=== PATIENT | female | born 1985 | race Caucasian/White ===

== ENCOUNTER 2017-06-26 11:21 | Emergency (ER) | payer MEDICAID ==
[2017-06-26] MEDS ORDERED: Albuterol-Ipratrop 3 mg / 0.5 (3 ml) UD IH STA (11:55)
[2017-06-26] MEDS ORDERED: Albuterol-Ipratrop 3 mg / 0.5 (3 ml) UD ONE (12:08)
--- NOTE | 2017-06-26 12:14 | RAD ---
HISTORY: Cough COMPARISON: Chest x-ray performed 07/12/14 TECHNIQUE: Chest PA and lateral FINDINGS: LUNGS: No focal consolidation. Please note that chest x-ray has limited sensitivity for the detection of pulmonary masses. PLEURA: No significant pleural effusion identified. No definite pneumothorax . CARDIOVASCULAR: The cardiomediastinal silhouette appears within normal limits of size. OSSEOUS STRUCTURES: No acute osseous abnormality identified. VISUALIZED UPPER ABDOMEN: Unremarkable. OTHER FINDINGS: None. IMPRESSION: No focal consolidation, significant pleural effusion, or definite pneumothorax identified.
--- NOTE | 2017-06-26 12:18 | C.PDOC ---
History Of Present Illness 31 year old female, with PMHx of Asthma, presents to the ED for evaluation of cough and cold symptoms which began around 2 days ago. Patient notes she has been producing a lot of phlegm. She denies fever, chills, chest pain, shortness of breath. Time Seen by Provider: 06/26/17 11:31 Chief Complaint (Nursing): Shortness Of Breath History Per: Patient History/Exam Limitations: no limitations Onset/Duration Of Symptoms: Days (2) Current Symptoms Are (Timing): Still Present Initiating Event: Upper Respiratory Illness Quality: denies: "Pain" Exacerbating Factor(s): Coughing Current Respiratory Medications: See Home Med List Associated Symptoms: Productive Cough. denies: Fever, Chills, Chest Pain Additional History Per: Patient Past Medical History Reviewed: Historical Data, Nursing Documentation, Vital Signs Vital Signs: Last Vital Signs Temp 98.2 F 06/26/17 12:58 Pulse 83 06/26/17 12:58 Resp 20 06/26/17 12:58 BP 124/70 06/26/17 12:58 Pulse Ox 100 06/26/17 12:58 - Medical History PMH: Asthma, Bronchitis Surgical History: No Surg Hx - [facility] Procedures CLOSURE SKIN & SUBCUTANEOUS NEC (08/06/14) TETANUS TOXOID ADMINIST (08/06/14) Family History: States: Unknown Family Hx - Social History Hx Tobacco Use: Yes Hx Alcohol Use: Yes Hx Substance Use: No - Immunization History Hx Tetanus Toxoid Vaccination: No Hx Influenza Vaccination: No Hx Pneumococcal Vaccination: No Review Of Systems Constitutional: Negative for: Fever, Chills Cardiovascular: Negative for: Chest Pain Respiratory: Positive for: Cough, Sputum. Negative for: Shortness of Breath Physical Exam - Physical Exam Appears: Non-toxic, No Acute Distress Skin: Normal Color, Warm, Dry Head: Atraumatic, Normacephalic Eye(s): bilateral: Normal Inspection Ear(s): Bilateral: Normal Nose: Normal, No Discharge Oral Mucosa: Moist Throat: Normal, No Erythema, No Exudate Neck: Supple Chest: Symmetrical, No Deformity, No Tenderness Cardiovascular: Rhythm Regular, No Murmur Respiratory: Normal Breath Sounds, No Rales, No Rhonchi, No Wheezing Extremity: Normal ROM, Capillary Refill (less than 2 seconds ) Neurological/Psych: Oriented x3, Normal Speech, Normal Cognition Gait: Steady ED Course And Treatment ECG: Interpreted By Me ECG Rhythm: Sinus Rhythm ECG Interpretation: Normal Rate From EC O2 Sat by Pulse Oximetry: 100 (on RA) Pulse Ox Interpretation: Normal - Radiology CXR: Interpreted by Me CXR Interpretation: Yes: No Acute Disease - Other Rad No standard instances X-Ray: Viewed By Me, Read By Radiologist Interpretation: FINDINGS: LUNGS: No focal consolidation. Please note that chest x-ray has limited sensitivity for the detection of pulmonary masses. PLEURA: No significant pleural effusion identified. No definite pneumothorax . CARDIOVASCULAR: The cardiomediastinal silhouette appears within normal limits of size. OSSEOUS STRUCTURES: No acute osseous abnormality identified. VISUALIZED UPPER ABDOMEN: Unremarkable. OTHER FINDINGS: None. IMPRESSION: No focal consolidation, significant pleural effusion, or definite pneumothorax identified. Progress Note: CXR ordered and reviewed. Patient was treated with Abluterol INH. On re-evaluation lungs clear Reassessment Condition: Improved Disposition Counseled Patient/Family Regarding: Studies Performed, Diagnosis, Need For Followup, Rx Given - Disposition Referrals: [facility] [Outside] [facility] [Outside] Disposition: HOME/ ROUTINE Disposition Time: 12:45 Condition: STABLE Additional Instructions: Follow up at clinic or PMD for further evaluation Prescriptions: Albuterol HFA [Ventolin HFA 90 mcg/actuation (8 g)] 2 puff IH [id number] PRN #1 appful PRN Reason: Cough Instructions: Upper Respiratory Infection in Children (ED) Forms: [facility] (Yi) - POA Present On Arrival: None - Clinical Impression Clinical Impression: Asthma, Upper respiratory infection - 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 - Scribe Statement The provider has reviewed the documentation as recorded by the Scribe (Charmaine Marshall) All medical record entries made by the Scribe were at my direction and personally dictated by me. I have reviewed the chart and agree that the record accurately reflects my personal performance of the history, physical exam, medical decision making, and the department course for this patient. I have also personally directed, reviewed, and agree with the discharge instructions and disposition.
[2017-06-26 12:58] VITALS: BP 124/70; PULSE 83; RESP 20; TEMP 98.2; O2SAT 100
--- NOTE | 2017-06-27 15:37 | CARD ---
APPROVED REPORT EKG Measurement Heart [id number] <Conclusion> Normal sinus rhythm Normal ECG
== END 2017-06-26 12:58 | disposition home or self-care (01) ==
LOC: C.ER 11:21
DX: J45.909 Unspecified asthma, uncomplicated (principal); J06.9 Acute upper respiratory infection, unspecified; F17.210 Nicotine dependence, cigarettes, uncomplicated

== ENCOUNTER 2018-10-02 23:35 | Emergency (ER) | payer SELFPAY ==
[2018-10-02 23:53] VITALS: RESP 20
[2018-10-03 01:42] VITALS: BP 101/61; PULSE 57; TEMP 98.3; O2SAT 99
--- NOTE | 2018-10-03 01:45 | C.PDOC ---
History Of Present Illness 33 year old female presents to the ER with a complaint of intermittent cold for the past 5 weeks. She has been taking mucinex, tessalon, alkaseltzer, and advil with no relief. Patient states she continues to have fever, nasal conegstion, and persistent cough. Denies SOB or wheezing. Patient reports now having pain in her back and feels like she has been losing weight since the symptoms started. Chief Complaint (Nursing): Cough, Cold, Congestion History Per: Patient History/Exam Limitations: no limitations Onset/Duration Of Symptoms: Days, Intermittent Episodes Current Symptoms Are (Timing): Still Present Location Of Pain: Other (Back) Sick Contacts (Context): None Associated Symptoms: Fever, Cough, Nasal Congestion Recent travel outside of the [place]: No Past Medical History Reviewed: Historical Data, Nursing Documentation, Vital Signs Vital Signs: Last Vital Signs Temp 98.3 F 10/03/18 01:41 Pulse 57 L 10/03/18 01:41 Resp 20 10/03/18 01:41 BP 101/61 10/03/18 01:41 Pulse Ox 99 10/03/18 01:41 - Medical History PMH: Asthma, Bronchitis - [facility] Procedures CLOSURE SKIN & SUBCUTANEOUS NEC (08/06/14) TETANUS TOXOID ADMINIST (08/06/14) Family History: States: Unknown Family Hx - Social History Hx Tobacco Use: Yes Hx Alcohol Use: Yes Hx Substance Use: No - Immunization History Hx Tetanus Toxoid Vaccination: No Hx Influenza Vaccination: No Hx Pneumococcal Vaccination: No Review Of Systems Constitutional: Positive for: Fever. Negative for: Chills Eyes: Negative for: Pain, Redness ENT: Positive for: Nose Congestion. Negative for: Mouth Swelling Cardiovascular: Negative for: Chest Pain Respiratory: Positive for: Cough. Negative for: Shortness of Breath Gastrointestinal: Negative for: Nausea, Vomiting, Diarrhea Genitourinary: Negative for: Dysuria, Hematuria Musculoskeletal: Negative for: Back Pain Skin: Negative for: Rash Neurological: Negative for: Weakness, Numbness, Dizziness Physical Exam - Physical Exam Appears: Well, Non-toxic, No Acute Distress Skin: Normal Color, Warm, No Rash Head: Atraumatic, Normacephalic Eye(s): bilateral: Normal Inspection, PERRL, EOMI Ear(s): Bilateral: Normal Nose: Discharge (Clear), Other (Nasal congestion) Oral Mucosa: Moist Throat: Normal (No swelling or injection), No Exudate Neck: Normal ROM, Supple Chest: Symmetrical Cardiovascular: Rhythm Regular Respiratory: No Accessory Muscle Use, Other (Normal inspiratory effort) Gastrointestinal/Abdominal: Soft, No Distention Back: No CVA Tenderness Neurological/Psych: Oriented x3, Normal Speech, Normal Cranial Nerves (Grossly intact) Gait: Steady ED Course And Treatment O2 Sat by Pulse Oximetry: 99 (Room air) Pulse Ox Interpretation: Normal - Radiology CXR: Interpreted by Me, Viewed By Me CXR Interpretation: Yes: No Acute Disease. No: Infiltrates Medical Decision Making Medical Decision Making: CXR and flu swab ordered, results were negative. Patient advise symptoms are likely due to viral syndrome, will discharge home with instructions to follow up with PMD. 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 - Scribe Statement The provider has reviewed the documentation as recorded by the Scribruslan Garcia All medical record entries made by the Chemoibe were at my direction and personally dictated by me. I have reviewed the chart and agree that the record accurately reflects my personal performance of the history, physical exam, medical decision making, and the department course for this patient. I have also personally directed, reviewed, and agree with the discharge instructions and disposition.
--- NOTE | 2018-10-03 09:54 | RAD ---
Date of service: 10/03/2018 HISTORY: Evaluate for pneumonia COMPARISON: 06/26/2017. TECHNIQUE: Chest PA and lateral FINDINGS: LINES AND TUBES: None. LUNG AND PLEURA: The lungs are well inflated and clear. No pleural effusion or pneumothorax. HEART AND MEDIASTINUM: The heart is not enlarged. No aortic atherosclerotic calcifications present. The hilar and mediastinal contours are within normal limits. SKELETAL STRUCTURES: The bony structures are within normal limits for the patient's age. VISUALIZED UPPER ABDOMEN: Normal. OTHER FINDINGS: None. IMPRESSION: No active pulmonary disease.
== END 2018-10-03 01:51 | disposition home or self-care (01) ==
LOC: C.ER 23:35
DX: J06.9 Acute upper respiratory infection, unspecified (principal)

== ENCOUNTER 2018-11-21 18:32 | Emergency (ER) | payer MEDICAID, OTHER ==
[2018-11-21 18:43] VITALS: O2SAT 100
[2018-11-21 19:12] VITALS: RESP 18
--- NOTE | 2018-11-21 20:46 | C.PDOC ---
History Of Present Illness 33 year old female presents to ED with complaint of mass to the left breast for the past 5-6 weeks. Patient states that it has gotten larger in the past few days. Patient's mother had cervical cancer and her grandmother had breast cancer. Patient denies fever, denies drainage coming from the mass. Time Seen by Provider: 11/21/18 19:11 Chief Complaint (Nursing): Abnormal Skin Integrity History Per: Patient History/Exam Limitations: no limitations Onset/Duration Of Symptoms: Other (5-6 weeks) Current Symptoms Are (Timing): Still Present Location Of Injury: Left: Chest (left breast) Quality Of Symptoms: Swollen. denies: Draining Severity: Moderate Past Medical History Reviewed: Historical Data, Nursing Documentation, Vital Signs Vital Signs: Last Vital Signs Temp 97.9 F 11/21/18 19:05 Pulse 64 11/21/18 19:05 Resp 18 11/21/18 19:05 BP 115/70 11/21/18 19:05 Pulse Ox 100 11/21/18 19:05 - Medical History PMH: Asthma, Bronchitis Surgical History: No Surg Hx - [facility] Procedures CLOSURE SKIN & SUBCUTANEOUS NEC (08/06/14) TETANUS TOXOID ADMINIST (08/06/14) Family History: States: Other Other Family History: Cervical cancer and breast cancer - Social History Hx Tobacco Use: Yes Hx Alcohol Use: Yes Hx Substance Use: No - Immunization History Hx Tetanus Toxoid Vaccination: No Hx Influenza Vaccination: No Hx Pneumococcal Vaccination: No Review Of Systems Constitutional: Negative for: Fever, Chills, Weakness Cardiovascular: Negative for: Chest Pain Respiratory: Negative for: Cough Skin: Positive for: Other (mass on the left breast, no drainage) Neurological: Negative for: Weakness, Numbness, Dizziness Physical Exam - Physical Exam Appears: Non-toxic, No Acute Distress Skin: Warm, Dry Head: Atraumatic, Normacephalic Neck: Normal ROM, Supple Lymphatic: No Other (axillary adenopathy) Chest: Other (small breasts, bilateral inverted nipples; firm, raised 1 cm roundish mass on areola medial to the nipple on the areola, no fluctuance, no warmth, no drainage. no other breast masses palpated) Cardiovascular: Rhythm Regular Respiratory: No Decreased Breath Sounds Extremity: Bilateral: Atraumatic, Normal Color And Temperature Neurological/Psych: Oriented x3, Normal Speech, Normal Cognition ED Course And Treatment O2 Sat by Pulse Oximetry: 100 (in RA) Medical Decision Making Medical Decision Making: Impression: 33 year old with mass to the left breast Plan: Discussed case with OB and surgical clinical reviewer. Recommended mammogram and breast surgery [facility]. Will refer to . Discussed plan with patient who expresses understanding. All questions answered and there is agreement with the plan to discharge home with instructions. Patient stable for discharge. Return if symptoms persist or worsen. Disposition Counseled Patient/Family Regarding: Diagnosis, Need For Followup, Rx Given - Disposition Referrals: Ej Charles MD [Staff Provider] - Noe Sanchez MD [Staff Provider] - [facility] [Outside] Disposition: HOME/ ROUTINE Disposition Time: 20:46 Condition: GOOD Additional Instructions: Call Dr Horner and Dr Sanchez;s office on Saturday to make soonest appointment. Call [facility] for appointment at breast surgery clinic0 Sinan Cm. Follow up with primary care doctor and pony rougher. Need outpatient mammogram. Take antibiotics as prescribed. Tylenol or Motrin for pain if needed. Follow up with Dr Sanchez (call [place] [facility] and ask to make breast surgery clinic appointment) or Dr Charles next week for surgery consult . Call both on Saturday to make soonest appointment. You should also follow up with pony rougher and primary medical doctor. Need breast mammogram and possiblu breast sonogram as soon as possible. Take antibiotics as prescribed. 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 (Glenny Whitlock) - Scribe Statement The provider has reviewed the documentation as recorded by the Scribe (Glenny Whitlock) All medical record entries made by the Scribe were at my direction and personally dictated by me. I have reviewed the chart and agree that the record accurately reflects my personal performance of the history, physical exam, medical decision making, and the department course for this patient. I have also personally directed, reviewed, and agree with the discharge instructions and disposition.
[2018-11-21 21:07] VITALS: BP 119/69; PULSE 70; TEMP 98
== END 2018-11-21 21:08 | disposition home or self-care (01) ==
LOC: C.ER 18:32
DX: N63.20 Unspecified lump in the left breast, unspecified quadrant (principal); Z72.0 Tobacco use